=== PATIENT | female | born 1970 | race Caucasian/White ===

== ENCOUNTER 2019-10-18 14:16 | Emergency (ER) | payer OTHER, SELFPAY ==
--- NOTE | ~2019-10-18 | XR_ITS ---
EXAMINATION: XR chest 2V EXAM DATE: 10/18/2019 15:05 INDICATION: Cough, right-sided chest pain. Decreased breath sounds. TECHNIQUE: Frontal and lateral projections of the chest obtained and reviewed. There is no prior saundra dy for comparison. FINDINGS: The lungs are clear. There are no pleural effusions. The cardiomediastinal silhouette is within normal limits. There is no pneumothorax suspected. The bones and soft tissues are unremarkab le. IMPRESSION: No acute cardiopulmonary findings. Reviewed, dictated and finalized at location A.
--- NOTE | 2019-10-18 14:19 | ED.URI ---
HPI - URI/Sore Throat General Chief Complaint: Upper Respiratory Infection Stated Complaint: cough/fever Time Seen by Provider: 10/18/19 14:50 Source: patient and RN notes reviewed Mode of arrival: ambulatory Limitations: no limitations History of Present Illness HPI Narrative: 48-year-old female presents with concern for chills, fever, body aches, cough, fatigue, sinus congestion. Reports symptoms started on Friday. Reports is been taking ibuprofen and Mucinex with little relief MD elicited complaint: cough Related Data Home Medications Medication Instructions Recorded Confirmed Control Pills 10/18/19 acetaminophen [Tylenol] 325 mg PO ONCE PRN 10/18/19 10/18/19 guaifenesin [Mucinex] 1,200 mg PO Q12H 10/18/19 10/18/19 pseudoephedrine-ibuprofen [Advil 1 tablet PO Q4-6H PRN 10/18/19 10/18/19 Cold and Sinus] Allergies Allergy/AdvReac Type Severity Reaction Status Date / Time No Known Allergies Allergy Verified 10/18/19 14:38 Review of Systems Review of Systems: Narrative: CONSTITUTIONAL: Reports malaise, fatigue, chills, sweats, or fever. EYES: Denies visual changes, redness, or discharge. ENT: Reports rhinorrhea, congestion. Denies sinus pain, otalgia and sore throat. CARDIOVASCULAR: Denies chest pain, palpitations, or edema. RESPIRATORY: Reports persistent cough, chest congestion. Denies dyspnea. GASTROINTESTINAL: Denies abdominal pain, nausea, vomiting, diarrhea SKIN: Denies rash or itching. MUSCULOSKELETAL: Reports myalgia. NEUROLOGIC: Denies headache. All systems reviewed & are unremarkable except as noted in HPI and below PMFSH Family History Family History (Updated 04/07/14 @ 07:13 by DOCTOR UNKNOWN) Mother Hypertension Father Family history of malignant neoplasm of stomach Social History Social History Smoking status: Never smoker Second hand tobacco smoke exposure: Yes Alcohol intake: current Comments At time of signature, agree with nursing past medical, surgical, social and family history. There is no relevant family history pertinent to the presenting complaint Exam Narrative: Exam Narrative: GENERAL: Well-appearing, well-nourished, and in no acute distress. HEAD: Normocephalic EYES: PERRLA, conjunctivae clear ENT: Nares clear, turbinates edematous and erythematous, clear discharge. Mucous membranes moist. TM pearly araujo with dull light reflex bilaterally; no tragal tenderness. Oropharynx not erythematous without lesions. Tonsils not enlarged and without exudate, no drooling, no hoarseness, no trismus, uvula midline. NECK: Supple. No lymphadenopathy CHEST: Clear to auscultation, right upper lobe diminished. No wheezing, rhonchi, rales, or stridor. No respiratory distress, speaks in full sentences. HEART: Regular rate and rhythm. No murmur heard. SKIN: Warm, dry, no rash. NEURO: Alert and oriented x3. PSYCH: Normal mood and affect Course Course Emergency Course: Patient is aware of diagnosis, understands and agrees to treatment plan. Anticipatory guidance given. Patient agrees to follow-up as directed and is aware of reasons to seek care at the emergency department. Portions of this record may have been created with voice recognition software Vital Signs Vital signs: Reviewed. MDM - URI/Sore Throat MDM Narrative Medical decision making narrative: Differential diagnosis considered: Strep pharyngitis, allergic rhinitis, upper respiratory tract infection, sinusitis, rhinosinusitis, nasopharyngitis. viral pharyngitis, otitis media, otitis externa, pneumonia, bronchitis, viral cough syndrome, viral syndrome, and influenza. Exam findings show no acute concerns or changes; patient is non-toxic appearing and is in no distress. Patient is appropriate for outpatient treatment and follow-up. Lab Data Attestation: I reviewed the patient's lab results. Imaging Data My impression: Images reviewed, interpreted by radiologist, agree, see report. Radiologist's impression: EXAMINATION
[2019-10-18 14:31] VITALS: BP 118/71; PULSE 79; RESP 20; TEMP 37.3; O2SAT 100
== END 2019-10-18 15:24 | disposition home or self-care (01) ==
PROVIDERS: Emergency Provider Nurse Practitioner; PCP Family Medicine
DX: J10.1 Influenza due to other identified influenza virus with other respiratory manifestations (principal)
CPT/HCPCS: 71046; 87804; 99213; G0463

== ENCOUNTER 2020-02-24 15:47 | Outpatient (CLI) | payer OTHER, SELFPAY ==
--- NOTE | ~2020-02-24 | US_ITS ---
EXAMINATION: US breast RT limited HISTORY: Six-month follow-up for probably benign right breast mass TECHNIQUE: Limited right breast ultrasound is performed. COMPARISON: 08/24/2019 FINDINGS: There is a 5 mm x 2 mm oval, circumscribed, parallel, hypoechoic mass at the 10:00 location 2 cm from the nipple which has decreased in size since the comparison examination, consistent with a benign finding. A cluster of cysts is again noted at the 7:00 location 4 cm from the nipple. IMPRESSION: No sonographic evidence of malignancy. Routine screening mammography is recommended, due in June. BI-RADS Category 2: Benign finding(s). Reviewed, dictated and finalized at location A. IMPRESSION: No sonographic evidence of malignancy. Routine screening mammography is recomme nded, due in June. BI-RADS Category 2: Benign finding(s).
== END 2020-02-24 15:48 | disposition home or self-care (01) ==
PROVIDERS: Visit Provider Obstetrics & Gynecology
DX: R92.8 Other abnormal and inconclusive findings on diagnostic imaging of breast (principal)
CPT/HCPCS: 76642

== ENCOUNTER 2020-03-22 00:53 | Outpatient (CLI) | payer OTHER, SELFPAY ==
[2020-03-22 18:42] LABS: SARS-CoV-2 RNA PCR Negative
== END 2020-03-22 00:54 | disposition home or self-care (01) ==
LOC: ANHCOVIDDT 00:53
PROVIDERS: Visit Provider Obstetrics & Gynecology
DX: Z01.812 Encounter for preprocedural laboratory examination (principal); Z20.828 Contact with and (suspected) exposure to other viral communicable diseases
CPT/HCPCS: 87635; C9803; U0003

== ENCOUNTER 2020-03-24 01:17 | Day surgery (SDC) | payer OTHER, SELFPAY ==
[2020-03-08 16:02] VITALS: BMI 22.1
--- NOTE | 2020-03-22 07:39 | PM.IMHP ---
H&P: HPI History of Present Illness Date/Time: 03/22/20 07:39 Chief complaint: Abnormal Bleeding Narrative: Maciej Barker is a 49 year old female 1 para 1 who was admitted for hysteroscopy dilatation curettage secondary to excessive irregular bleeding. She has known uterine fibroids. She had an ultrasound which showed the endometrial lining did appear okay. She continues to take a continuous control. However she does note that her bleeding has been continuously irregular and heavy. Risks and benefits of the procedure reviewed. She read the ACOG handouts entitled hysteroscopy and dilatation and curettage respectively. She had all questions answered. She asked to proceed Review of Systems Review of Systems: All systems reviewed & are unremarkable except as noted in HPI and below PMFSH Family History Family History Mother Hypertension Father Family history of malignant neoplasm of stomach Social History Social History Smoking status: Never smoker Second hand tobacco smoke exposure: Yes Alcohol intake: current Drinks per week: 4 Substance use: never Spiritual care concerns: No Meds Home Medications and Allergies Home Medications Medication Instructions Recorded Confirmed Type multivitamin [Daily Multi-Vitamin] 1 tablet PO DAILY 03/08/20 03/08/20 History Allergies Allergy/AdvReac Type Severity Reaction Status Date / Time No Known Allergies Allergy Verified 12/07/19 15:26 Exam Const: General: no acute distress Eyes: General: appearance normal, both eyes and all related structures Neck: Neck: supple and no JVD Thyroid: thyroid normal Resp: Effort & Inspection: normal respiratory effort Auscultation: clear to auscultation bilaterally Cardio: Rate: regular rate Rhythm: regular rhythm GI: Inspection: non-distended GI Palp: Yes Soft to palpation, No Tenderness to palpation present (GI) and No Guarding due to palpation present (GI) Auscultation: normal bowel sounds : General: Yes bladder normal to inspection External Female Exam: normal external appearance Speculum Exam - Vagina: normal appearance of the vagina Speculum Exam - Cervix: normal appearance of the cervix Bimanual exam- vagina & uterus: uterine shape normal and enlarged Bimanual Exam- Adnexa, other: no masses Skin: General skin exam: no rashes or lesions noted Extrem: General: normal to inspection and no edema Psych: Mental Status: mental status grossly normal Affect: normal affect Assessment and Plan Additional Plan impression: Excessive heavy bleeding refractory to medical therapy Plan: Hysteroscopy / dilatation and curettage
--- NOTE | 2020-03-24 06:50 | WPDHPUPDATE1 ---
History and Physical Update Update Date/Time: 03/24/20 06:50 History and Physical has been reviewed, including an updated exam of the patient. There are NO changes in the patient's condition. Risks, benefits, and alternatives have been discussed and questions answered. Patient agrees to proceed with procedure.
[2020-03-24] MEDS: LACTATED RINGERS 1,000 ML 30 ML IV CONT (12:10)
[2020-03-24 12:11] VITALS: BP 123/76; PULSE 64; RESP 20; TEMP 37.7; O2SAT 100
[2020-03-24] MEDS: ACETAMINOPHEN 500 MG TABLET 1000 MG PO (12:16)
--- NOTE | 2020-03-24 12:29 | WPDANESEPPF ---
Anes - Initial Pre Proc Eval Procedure: Operation Date: 03/24/20 13:30 Proposed Procedures p Hysteroscopy Dilation and Curettage - Jayant Browne MD Date/Time: 03/24/20 12:29 Surgeon: Jayant Browne MD Pre Op Diagnosis: Abnormal Bleeding Patient Data Age: 49 Gender: F Height: 5 ft 6 in Weight: 60.9 kg Allergies Allergy/AdvReac Type Severity Reaction Status Date / Time No Known Allergies Allergy Verified 03/24/20 11:40 Home Medications Medication Instructions Recorded Confirmed Type multivitamin [Daily Multi-Vitamin] 1 tablet PO DAILY 03/08/20 03/24/20 History hydrocodone-acetaminophen [[place]] 1 tablet PO Q4H PRN #14 tablet 03/24/20 Rx Patient hx anesthesia problems: none Family hx anesthesia problems: none PMFSH Past Medical History Medical History Arthritis Family History Family History Mother Hypertension Father Family history of malignant neoplasm of stomach Social History Social History Smoking status: Never smoker Second hand tobacco smoke exposure: Yes Alcohol intake: current Drinks per week: 4 Substance use: never Living arrangements: with family Spiritual care concerns: No Anes - Eval Final PreProcedure Day of Procedure 03/24/20 12:29 Patient weight: normal Heart: regular rate and rhythm Lungs: clear to auscultation Airway: Mallampati scale class II Neurological: alert and oriented Last oral intake: >/= 8 hours ASA classification: II Emergent: no Anesthetic plan: proceed Anesthesia type and monitoring: general GIVS and standard monitoring Informed Consent: The patient's anesthetic plan and its attendant risks and benefits were discussed with the patient/family/POA. Questions were solicited and answers provided to the satisfaction of the patient/family/POA.
--- NOTE | 2020-03-24 13:41 | PM.PROC ---
Procedure Note - Detailed Date of procedure: 03/24/20 Pre-op diagnosis: Abnormal Bleeding Surgeon: Jayant Browne MD Postop diagnosis: Abnormal bleeding/ uterine polyp Procedure: Hysteroscopy/ dilatation curettage/ polypectomy Anesthesia: IV sedation local EBL: 5Cc Complications: None Findings: A very stenotic cervix. Uterus sounded to 8cm. Small uterine polyp. Description of procedure: The patient was prepped and draped in the normal sterile fashion and placed in the dorsal lithotomy position. Under IV sedation weighted speculum placed in posterior fornix of vagina. Anterior lip of the cervix was grasped with single-tooth tenaculum. 2.5cc of 1% xylocaine anesthesia placed at 2, 4, 8, 10:00 a.m. of the cervix. Uterus sounded 8cm. Serial dilatation with fragmented dilators performed followed by passage of the 5mm visualizing hysteroscope using normal saline as visualizing medium. A small uterine polyp was seen and this was removed with the polyp forceps. No other abnormalities were seen the uterus was then scraped over the entire 360?. When a good grating sound was positive procedure was terminated. Blood loss was estimated at5cc. All sponge, needle, instrument counts were correct. There were no immediate complications
[2020-03-24 13:46] VITALS: BP 115/66; PULSE 63; RESP 16; O2SAT 100
[2020-03-24 14:15] VITALS: BP 132/80; PULSE 53; RESP 16; O2SAT 100
[2020-03-24 14:45] VITALS: BP 126/73; PULSE 52; RESP 16
== END 2020-03-24 14:55 | disposition home or self-care (01) ==
PROVIDERS: Visit Provider Obstetrics & Gynecology
PROC: 0U5B8ZZ Destruction of Endometrium, Via Natural or Artificial Opening Endoscopic (ICD-10-PCS; CPT 58563; principal; 2020-03-24 13:30)
DX: N84.0 Polyp of corpus uteri (principal)
CPT/HCPCS: 58558; 88305; A9270; J2250; J2405; J2704; J3010; J7030; J7120

== ENCOUNTER 2020-06-30 15:06 | Outpatient (CLI) | payer OTHER, SELFPAY ==
--- NOTE | ~2020-06-30 | MM_ITS ---
EXAMINATION: MM screening jack BI w alen HISTORY: Screening mammogram TECHNIQUE: Craniocaudal and mediolateral oblique 3-D tomosynthesis images were obtained and synthetic 2-D images were generated. CAD analysis was submitted and interpreted. COMPARISON: 08/24/2019, 06/24/2019, 06/22/2018, 06/18/2017 BREAST PARENCHYMAL COMPOSITION: The breasts are extremely dense, which lowers the sensitivity of mamm ography. FINDINGS: Scattered benign-appearing calcifications are present. There is no evidence of suspicious m ass, calcification, or architectural distortion to suggest malignancy in either breast. There has bee n no suspicious interval change. IMPRESSION: 1. No mammographic evidence of malignancy. 2. Recommend routine screening mammography in one year. BI-RADS Category 2: Benign finding(s). Reviewed, dictated and finalized at location A. IALTIES OPERATOR
== END 2020-06-30 15:07 | disposition home or self-care (01) ==
LOC: ANHIMG 15:19
PROVIDERS: Visit Provider Obstetrics & Gynecology
DX: Z12.31 Encounter for screening mammogram for malignant neoplasm of breast (principal)
CPT/HCPCS: 77063; 77067

== ENCOUNTER 2021-07-18 16:37 | Outpatient (CLI) | payer OTHER, SELFPAY ==
--- NOTE | ~2021-07-18 | MM_ITS ---
EXAMINATION: MM screening jack BI w alen HISTORY: Screening TECHNIQUE: Craniocaudal and mediolateral oblique 3-D tomosynthesis images were obtained and synthetic 2-D images were generated. CAD analysis was submitted and interpreted. COMPARISON: Comparison to multiple prior studies sequentially, with oldest reviewed study dated 09/2015. BREAST PARENCHYMAL COMPOSITION: The breasts are heterogenously dense, which may obscure small masses FINDINGS: There is no evidence of suspicious mass, calcification, or architectural distortion to sugg est malignancy in either breast. There has been no suspicious interval change. IMPRESSION: 1. No mammographic evidence of malignancy. 2. Recommend routine screening mammography in one year. BI-RADS Category 1: Negative Reviewed, dictated and finalized at location A. ITY OPERATOR
== END 2021-07-18 16:38 | disposition home or self-care (01) ==
LOC: ANHIMG 16:40
PROVIDERS: Visit Provider Obstetrics & Gynecology
DX: Z12.31 Encounter for screening mammogram for malignant neoplasm of breast (principal)
CPT/HCPCS: 77063; 77067

== ENCOUNTER 2022-08-08 07:54 | Outpatient (CLI) | payer OTHER, SELFPAY ==
--- NOTE | ~2022-08-08 | MM_ITS ---
EXAMINATION: MM screening jack BI w alen HISTORY: Screening mammogram TECHNIQUE: Craniocaudal and mediolateral oblique 3-D tomosynthesis images were obtained and synthetic 2-D images were generated. CAD analysis was submitted and interpreted. COMPARISON: 07/2021, 06/30/2020 bilateral screening mammogram examinations BREAST PARENCHYMAL COMPOSITION: The breasts are heterogeneously dense, which may obscure small masses . FINDINGS: Scattered bilateral benign microcalcifications There is no evidence of suspicious mass, homer cification, or architectural distortion to suggest malignancy in either breast. There has been no rosio picious interval change. IMPRESSION: 1. No mammographic evidence of malignancy. 2. Recommend routine screening mammography in one year. BI-RADS Category 2: Benign finding(s). Reviewed, dictated and finalized at location A. ING CONSULTANT
== END 2022-08-08 07:55 | disposition home or self-care (01) ==
PROVIDERS: Visit Provider Obstetrics & Gynecology
DX: Z12.31 Encounter for screening mammogram for malignant neoplasm of breast (principal)
CPT/HCPCS: 77063; 77067

== ENCOUNTER 2023-06-21 09:24 | Outpatient (CLI) | payer OTHER, SELFPAY ==
[2023-06-21 10:49] LABS: Hemoglobin 14.4 g/dL (12.0-15.0)
== END 2023-06-21 09:25 | disposition home or self-care (01) ==
PROVIDERS: Visit Provider Obstetrics & Gynecology
DX: Z01.818 Encounter for other preprocedural examination (principal); N93.9 Abnormal uterine and vaginal bleeding, unspecified
CPT/HCPCS: 36415; 85014; 85018

== ENCOUNTER 2023-06-27 00:42 | Day surgery (SDC) | payer OTHER, SELFPAY ==
[2023-06-20 16:23] VITALS: BMI 21.7
--- NOTE | 2023-06-20 16:52 | PC.NURSE ---
Report to the Outpatient Waiting Room, entrance under the green pavilion located off [facility], at 0630 on 06-27-23. Planned Procedure Time: 0830. Time changes happen often and if your time is changed the preop area will call you the afternoon before. - You and your visitor will be asked to self-screen and do not enter if you have any COVID symptoms. - A mask is optional within the hospital at this time. Patients may have clear liquids (water, carbonated beverages, clear teas, apple juice) until 3 hours prior to surgery with a maximum of 20 ounces. 0530 - No food from midnight until time of surgery - Infants may have breast milk until 4 hours before surgery, formula 6 hours prior to surgery. - Children will be allowed to drink immediately following surgery. If applicable, please bring a bottle or sippy cup to assist with drinking. Juice, water, soda, and popsicles are readily available. For infants on formula, please bring formula the day of surgery. Pacifiers are allowed. Take the following medications with a SIP of water the morning of surgery: None DO NOT STOP ANY OF YOUR OTHER PRESCRIPTION MEDICATIONS PRIOR TO SURGERY ?EXCEPT THE FOLLOWING Medications to discontinue per physician: vitamins and supplements Date to take last dose: 06-24-23 Please no make-up, nail new zealander, hairspray, perfume, deodorant, or body powder the day of surgery. No jewelry (including any body piercings) or valuables the day of surgery, leave them at home. Please take a shower or bath the night before, or the morning of, surgery with an antibacterial soap. Wear comfortable, loose fitting clothing. Children are encouraged to wear pajamas. - Jewelry must be removed prior to entering the operating room. Rings and piercings that are not removed may be cut off. - The hospital will not accept responsibility for valuables. - Please leave all valuables, including medications, at home the day of surgery. If you are going home after surgery, a licensed equipment driver must drive you home. - NO public transportation without another adult if you receive anesthesia. - We recommend that an adult stay with you for 24 hours following discharge. - We also recommend that you do not drive, make important decision, drink alcoholic beverages, or take any drugs that were not prescribed by your health care provider for at least 24 hours after your discharge time. For Pediatric surgeries, we recommend two adults accompany the child home. Follow any additional instructions given to you from your surgeon. If you or anyone in your household have experienced Covid symptoms in the past week, please notify your surgeon or the nurse liaison at the phone number below for possible testing. Telephone instructions given to Maciej Barker and asked if any additional questions and then verbalized understanding. Patient advised to call surgeon office or pre surgery nurse liaison [phone] if any additional questions.
--- NOTE | 2023-06-25 07:00 | PM.IMHP ---
H&P: HPI History of Present Illness Date/Time: 06/25/23 07:00 Chief Complaint: Irregular excessive bleeding Narrative: This is a 52-year-old 1 para 1 who is admitted for hysteroscopy dilatation curettage and ablation secondary to irregular bleeding. She has been on the pill she has had excessive bleeding with irregularity. Imaging was unhelpful. Risks and benefits of this procedure reviewed including not exclusive of , aspiration pneumonia, bleeding, transfusion, perforation injury to bowel, bladder, ureters, or other internal organs with need for open laparotomy. She received the ACOG handout entitled hysteroscopy, dilatation curettage, and the Gladys handout respectively. All questions were answered to her satisfaction and she asked to proceed she does understand this is not a form of control [facility] Past Medical History Medical History (Updated 06/25/23 @ 07:02 by Jayant Parker MD) Arthritis Family History Family History Mother Hypertension Father Family history of malignant neoplasm of stomach Social History Social History Smoking status: Never smoker Second hand tobacco smoke exposure: Yes (spouse smokes outside and in the car sometimes) Alcohol intake: current Drinks per week: 4 Alcohol use details: weekend social drinker a glass or 2 of wine a week maybe Substance use: never Substance use type: does not use Living arrangements: with family Spiritual care concerns: No Meds Home Medications and Allergies Home Medications Medication Instructions Recorded Confirmed Type multivitamin (Daily Multi-Vitamin 1 tablet PO DAILY 03/08/20 06/20/23 History tablet) magnesium 250 mg tablet 250 mg PO DAILY 06/20/23 06/20/23 History Allergies Allergy/AdvReac Type Severity Reaction Status Date / Time No Known Allergies Allergy Verified 06/20/23 16:18 Exam Const: General: cooperative, healthy appearing, comfortable and average body habitus Orientation/consciousness: oriented to person, oriented to place and oriented to time HENMT: Head: normal to inspection Resp: Effort & Inspection: normal respiratory effort Cardio: Rate: regular rate Rhythm: regular rhythm Heart sounds: S1 normal heart sound present and S2 normal heart sound present GI: Inspection: normal to inspection : External Female Exam: normal external appearance Speculum Exam - Vagina: normal appearance of the vagina Speculum Exam - Cervix: normal appearance of the cervix Bimanual exam- vagina & uterus: uterine shape normal Bimanual Exam- Adnexa, other: normal adnexae Assessment and Plan Assessment and plan (1) Excessive bleeding: Code(s): R58 - Hemorrhage, not elsewhere classified Status: Acute Plan Hysteroscopy/dilatation curettage/Gladys ablation
[2023-06-27] VITALS (9 sets, daily range): BP systolic 98–135; BP diastolic 69–90; PULSE 56–72; RESP 10–18; TEMP 36.3–37.1; O2SAT 99–100
--- NOTE | 2023-06-27 06:29 | WPDHPUPDATE1 ---
History and Physical Update Update Date/Time: 06/27/23 06:29 History and Physical has been reviewed, including an updated exam of the patient. There are NO changes in the patient's condition. Risks, benefits, and alternatives have been discussed and questions answered. Patient agrees to proceed with procedure.
[2023-06-27] MEDS: LACTATED RINGERS 1,000 ML 30 ML IV CONT (07:16)
[2023-06-27] MEDS: ACETAMINOPHEN 500 MG TABLET 1000 MG PO (07:17)
--- NOTE | 2023-06-27 07:33 | P.PNAN_ITS ---
Anes - Initial Pre Proc Eval Procedure: Operation Date: 06/27/23 08:30 Proposed Procedures p Hysteroscopy Dilation and Curettage Gladys Endometrial Ablation - Jayant Parker MD Date/Time: 06/27/23 07:33 Surgeon: Jayant Parker MD Pre Op Diagnosis: irregular bleeding Patient Data Age: 52 Gender: F Height: 1.68 m Weight: 61.24 kg Allergies Allergy/AdvReac Type Severity Reaction Status Date / Time No Known Allergies Allergy Verified 06/20/23 16:18 Home Medications Medication Instructions Recorded Confirmed Type multivitamin (Daily Multi-Vitamin 1 tablet PO DAILY 03/08/20 06/20/23 History tablet) magnesium 250 mg tablet 250 mg PO DAILY 06/20/23 06/20/23 History hydrocodone 5 mg-acetaminophen 325 1 tablet PO Q4H PRN pain #20 tabs 06/27/23 Rx mg tablet Patient hx anesthesia problems: none Family hx anesthesia problems: none Results Review: All pre-operative results and documents have been reviewed as part of the pre- operative evaluation. [facility] Past Medical History Medical History Arthritis Family History Family History Mother Hypertension Father Family history of malignant neoplasm of stomach Social History Social History Smoking status: Never smoker Second hand tobacco smoke exposure: Yes (spouse smokes outside and in the car s ometimes) Alcohol intake: current Drinks per week: 4 Alcohol use details: weekend social drinker a glass or 2 of wine a week maybe Substance use: never Substance use type: does not use Living arrangements: with family Spiritual care concerns: No Anes - Eval Final PreProcedure Day of Procedure 06/27/23 07:33 Patient weight: normal Heart: regular rate and rhythm Lungs: clear to auscultation Airway: Mallampati scale class II Neurological: alert and oriented Last oral intake: >/= 8 hours ASA classification: II Emergent: no Anesthetic plan: proceed Anesthesia type and monitoring: general GIVS and standard monitoring Results Review: All pre-operative results and documents have been reviewed as part of the pre- operative evaluation. Informed Consent: The patient's anesthetic plan and its attendant risks and benefits were discussed with the patient/family/POA. Questions were solicited and answers provided to the satisfaction of the patient/family/POA.
[2023-06-27] MEDS: LIDOCAINE HCL 1% LOCAL INJ 10 ML VIAL INFILTRATE (08:50)
--- NOTE | 2023-06-27 09:04 | W.PM.PROC2 ---
Procedure Note - Detailed Date of Procedure 06/27/23 Pre-op Diagnosis irregular bleeding Post-op Diagnosis Other (Irregular bleeding/uterine polyp) Procedure Performed Hysteroscopy/dilatation curettage/polypectomy/Gladys ablation Surgeon Jayant Parker MD Anesthesia MAC and Local Indications Some 52-year-old female vaginal bleeding and irregular endometrium on imaging Findings Moderate-sized uterine polyp which had a benign appearance Description of Procedure Patient was prepped draped in the normal sterile fashion placed in the dorsal lithotomy position. Under excellent IV sedation weighted speculum placed in posterior fornix vagina. Anterior lip of cervix grasped with single-tooth. Uterus sounded to 8.5cm. 2.5cc 1% xylocaine anesthesia placed at 2, 4, 8, 10:00 a.m. of the cervix. Serial dilatation with fragmented dilators performed followed by passage of the hysteroscope. Large polyp was seen. Passing the polyp instrument this was shaved from the endometrial wall. The uterus was scraped over the entire 360? in the instruments withdrawn. The Gladys instrument was placed in the uterus set at the appropriate settings and burned for 120seconds the instruments removed blood loss estimated 5cc all sponge, needle, instrument counts were correct. There were no immediate complications. Patient went to recovery in satisfactory condition Estimated Blood Loss 5 Drains No Packing No Pathology Yes Complications No immediate complications Condition Stable Disposition PACU
== END 2023-06-27 10:35 | disposition home or self-care (01) ==
PROVIDERS: PCP Family Medicine Sports Medicine; Visit Provider Obstetrics & Gynecology
PROC: 0U5B8ZZ Destruction of Endometrium, Via Natural or Artificial Opening Endoscopic (ICD-10-PCS; CPT 58563; principal; 2023-06-27 08:30)
DX: N93.9 Abnormal uterine and vaginal bleeding, unspecified (principal)
CPT/HCPCS: 58563; 36415; 85014; 85018; 88305; A9270; J2250; J2405; J2704; J3010; J7120

== ENCOUNTER 2023-08-12 07:30 | Outpatient (CLI) | payer OTHER, SELFPAY ==
--- NOTE | ~2023-08-12 | MM_ITS ---
EXAMINATION: MM screening jack BI w alen HISTORY: Screening mammogram TECHNIQUE: Craniocaudal and mediolateral oblique 3-D tomosynthesis images were obtained and synthetic 2-D images were generated. CAD analysis was submitted and interpreted. COMPARISON: 08/08/2022, 07/18/2021, 06/30/2020 BREAST PARENCHYMAL COMPOSITION: There are scattered areas of fibroglandular density. FINDINGS: Scattered benign-appearing calcifications are present. No suspicious mass, calcification, o r architectural distortion are identified in either breast to suggest malignancy. There has been no s uspicious interval change. IMPRESSION: 1. No mammographic evidence of malignancy. 2. Recommend routine screening mammography in one year. BI-RADS Category 2: Benign finding(s). Reviewed, dictated and finalized at location A. 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
== END 2023-08-12 07:31 | disposition home or self-care (01) ==
LOC: CHSIMG 07:32
PROVIDERS: PCP Family Medicine Sports Medicine; Visit Provider Obstetrics & Gynecology
DX: Z12.31 Encounter for screening mammogram for malignant neoplasm of breast (principal)
CPT/HCPCS: 77063; 77067

== ENCOUNTER 2024-06-18 13:20 | Outpatient (CLI) | payer OTHER, SELFPAY ==
--- NOTE | ~2024-06-18 | MMUS_ITS ---
EXAMINATION: MM diagnostic jack BI w alen, US breast BI complete HISTORY: Breast pain TECHNIQUE: Additional 3-D tomosynthesis images of the breasts were performed and synthetic 2-D images were generated. CAD analysis was submitted and interpreted. High resolution bilateral complete breas t ultrasound was performed. COMPARISON: Comparison to multiple prior studies sequentially, with oldest reviewed study dated 02/21. BREAST PARENCHYMAL COMPOSITION: Dense: The breasts are extremely dense, which lowers the sensitivity of mammography. FINDINGS: MAMMOGRAPHIC FINDINGS: There are no suspicious masses, calcifications or architectural distortion in either breast to sugges t malignancy. ULTRASOUND: Complete US of all 4 quadrants of the breast/s and retroareolar region was reviewed. Right breast: At 7:00, 4 cm from the nipple there is a cluster of microcysts. At 10:00, 2 cm from the nipple there is a 5 mm cyst. Left breast: Mildly prominent ducts in the left breast. No sonographic evidence for malignancy in eit her breast. IMPRESSION: 1. No evidence for malignancy in either breast. Benign findings. 2. Routine yearly screening mammogram and regular clinical breast examination are recommended. BI-RADS Category 2: Benign finding(s). Reviewed, dictated and finalized at location B. 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 No evidence for malignancy in either breast. Benign findings. 2. Routine yearly screening mammogram and regular clinical breast examination a re recommended. BI-RADS Category 2: Benign finding(s).
== END 2024-06-18 13:21 | disposition home or self-care (01) ==
LOC: ANHIMG 13:22
PROVIDERS: PCP Nurse Practitioner Family; Visit Provider Obstetrics & Gynecology
DX: N64.4 Mastodynia (principal)
CPT/HCPCS: 76641; 77062; 77066; G0279